=== PATIENT | female | born 1995 | race Asian ===

== ENCOUNTER → 2017-04-05 | Outpatient (REF) | payer BC, OTHER ==
[2017-04-05 20:09] LABS: MICROSCOPIC INDICATED? MAN YES (NO)
[2017-04-05 20:22] LABS: BACTERIA, URINE MOD AMOUNT; HYALINE CAST, URINE NONE SEEN /lpf (0-1); SQUAMOUS EPITHELIAL CELL URINE MOD AMOUNT /hpf (SMALL AMT)
[2017-04-05 20:23] LABS: MICROSCOPIC EXAM PERFORMED
== END ==
LOC: M LAB REF 18:54
PROVIDERS: ATTEND Physician Assistant
DX: N76.0 Acute vaginitis (principal)